=== PATIENT | female | born 1960 | race Hispanic/Latino ===

== ENCOUNTER → 2017-08-06 | Outpatient (CLI) | payer BC ==
[~2017-08-06] VITALS: Ht 154.9 cm; Wt 54.4 kg
[~2017-08-06] MED LIST: AMARYL2 MG PO; AMARYL4 MG PO; BIOTIN1000 MCG PO; DAYTIME COLD &237 ML PO; DAYTIME NIGHTT PO; FISH OIL 1,0001 EAC7 PO; GLUCOTROL XL10 MG PO; HYDROCODON-ACE1 EAC7 PO; IBUPROFEN800 MG PO; INVOKANA100 MG PO; LIPITOR20 MG PO; NOHOMEMEDS; TRADJENTA5 MG PO; VITAMIN E400 UNIT PO
[2017-08-06 09:52] LABS: POINT-OF-CARE METER ID UU14107333
== END | disposition home or self-care (01) ==
LOC: AMB 07-06 08:00
PROVIDERS: Internal Medicine
PROC: 0DJD8ZZ Inspection of Lower Intestinal Tract, Via Natural or Artificial Opening Endoscopic (ICD-10-PCS; principal; 2017-08-06)
DX: Z12.11 Encounter for screening for malignant neoplasm of colon (principal); K64.8 Other hemorrhoids; E11.9 Type 2 diabetes mellitus without complications; Z79.84 Long term (current) use of oral hypoglycemic drugs
CPT/HCPCS: 82948; 93005; J2250; J3010